=== PATIENT | male | born 1990 | race Caucasian/White ===

== ENCOUNTER → 2019-02-21 | Outpatient (CLI) | payer BC ==
--- NOTE | 2019-02-21 11:04 | Diagnostic Imaging Report ---
EXAMINATION: Magnetic resonance imaging of the left knee without intravenous contrast DATE: February 21, 2019. COMPARISON: None. INDICATION: 28-year-old male, left knee pain and instability. TECHNIQUE: Multiplanar, multisequence non contrast enhanced MR imaging was accomplished. FINDINGS: MENISCI: The medial meniscus is intact. The lateral meniscus is intact. LIGAMENTS AND TENDONS: The anterior and posterior cruciate ligaments are intact. The medial collateral ligament is intact. The iliotibial band, mid third lateral capsular ligament, fibular collateral ligament, biceps femoris tendon and conjoined tendon are intact. The quadriceps tendon and patella ligament are intact. JOINT: There is abnormal signal within the cartilage of the median patellar ridge and medial aspects of the lateral patellar facet without identified surface defect measuring 14 mm in transverse dimension which most likely relates to chondromalacia. The cartilage of the femoral trochlea is intact. The medial and lateral compartment cartilage is intact. There is no knee joint effusion, prominent synovitis, or identified intra-articular body. BONE: There is edema-like signal in the posterior aspect of the distal femoral metaphysis predominantly laterally located as well as prominent edema like signal in the medial tibial plateau without identified fracture line at either location. There are no pathognomonic signal changes of osteonecrosis. There is no pronounced T1 marrow signal loss. There is prominent soft tissue edema adjacent to the marrow signal abnormalities at the level of the medial tibial plateau. BURSAE AND SOFT TISSUES: There is abnormal soft tissue edema adjacent to the abnormal narrow edema at the level of the medial tibial plateau as mentioned above. There is no sizable Bakers cyst. Additional soft tissue evaluation is unremarkable. IMPRESSION: 1. Prominent abnormal edema-like signal within the marrow at the level of the medial tibial plateau extending to the level of the medial aspect of the proximal tibial metaphysis with adjacent soft tissue edema. There is no cortical or aggressive bone destruction. There is no identified fracture or pathognomonic signal changes of osteonecrosis. This is not specific. A bone contusion would be considered if there has been direct trauma to this site. Additional differential diagnostic considerations would include stress related marrow changes. An infiltrative bone lesion would be difficult to completely exclude. Correlation with patient history is recommended. 2. Edema-like signal in the posterior aspect of the distal femoral metaphysis predominantly laterally located with the same differential diagnostic considerations. 3. Abnormal signal in the patellar cartilage without identified overlying surface defect most likely correlating with chondromalacia. No knee joint effusion. 4. Intact menisci and cruciate ligaments. Additional ligaments and tendons are intact. Dictated by: Dictated on workstation # [id number]
== END ==
LOC: RAD 08:07
PROVIDERS: ATTEND Nurse Practitioner Family
DX: M25.562 Pain in left knee (principal); R93.6 Abnormal findings on diagnostic imaging of limbs
CPT/HCPCS: 73721

== ENCOUNTER 2019-06-24 19:22 | Emergency (ER) | payer BC ==
[~2019-06-24] VITALS: Ht 187.9 cm; Wt 104.5 kg
--- NOTE | 2019-06-24 19:42 | ED Integumentary General ---
General Chief Complaint: Laceration Stated Complaint: L HAND LACERATION Source: patient Exam Limitations: no limitations History of Present Illness Date Seen by Provider: Jun 24, 2019 Time Seen by Provider: 19:37 Initial Comments 29-year-old male who presents to the emergency room with complaints of laceration to his left third finger. He reports that he caught the finger on a metal fence and ripped a piece of skin. He has a skin tear to the palmar surface of the pad on his left third finger. It is 0.25 cm in width x 1 cm in length. He reports that he is up-to-date on his tetanus vaccine. Timing/Duration: just prior to arrival Past Ifuzuqo-Xbdskx-Srvggm Hx Patient Social History Recent Foreign Travel: No Contact w/Someone Who Travel: No Physical Exam Vital Signs Capillary Refill : Departure Impression Primary Impression: Skin tear Disposition: HOME, SELF-CARE Condition: Stable/Unchanged Departure-Patient Inst. Decision time for Depature: 19:41 Referrals: NO,LOCAL PHYSICIAN (PCP/Family) Primary Care Physician Patient Instructions: Laceration Repair With Glue (DC) Add. Discharge Instructions: Watch for signs of infection such as increased redness, swelling, drainage, pain. Let the glue fall off on its own. Try to avoid using soaps, lotions, ointments directly to the area. If the glue should come off keep the wound covered with a bandage until it healed. Follow-up with primary care as needed. Return back to the emergency room for worsening symptoms or concerns as needed. All discharge instructions reviewed with patient and/or family. Voiced understanding. HEIDY COATS Jun 24, 2019 19:42 POS
[2019-06-24 20:01] VITALS: BP 137/86
== END 2019-06-24 20:02 | disposition home or self-care (01) ==
LOC: EDUNIT# 19:22 → ER 19:23
DX: S61.213A Laceration without foreign body of left middle finger without damage to nail, initial encounter (principal); W23.1XXA Caught, crushed, jammed, or pinched between stationary objects, initial encounter